=== PATIENT | male | born 1975 | race Asian ===

== ENCOUNTER 2017-02-21 17:26 | Emergency (ER) | payer OTHER ==
[~2017-02-21] VITALS: Ht 170.2 cm; Wt 79.4 kg
[2017-02-21 21:03] VITALS: BP 138/88
== END 2017-02-21 21:03 | disposition home or self-care (01) ==
LOC: ED 17:26
DX: J40 Bronchitis, not specified as acute or chronic (principal); I10 Essential (primary) hypertension